=== PATIENT | female | born 1980 | race Caucasian/White ===

== ENCOUNTER → 2023-04-13 07:59 | Outpatient (CLI) | payer BC, SELFPAY ==
[2023-04-13 08:51] LABS: Influenza A - CEPHEID Flu A NEGATIVE (NEGATIVE); Influenza B - CEPHEID Flu B NEGATIVE (NEGATIVE); Respiratory Syncytial Virus Negative (Negative)
[2023-04-13 09:51] LABS: COVID-19 CEPHEID 4-PLEX PCR Negative (Negative)
== END ==
PROVIDERS: Visit Provider Student in an Organized Health Care Education/Training Program
DX: R50.9 Fever, unspecified (principal)
CPT/HCPCS: 0241U

== ENCOUNTER 2023-04-13 08:06 | Emergency (ER) | payer BC, SELFPAY ==
[2023-04-13] VITALS (8 sets, daily range): BP systolic 137–150; BP diastolic 66–76; PULSE 60–79; RESP 16; TEMP 36.5; O2SAT 95–100; BMI 23.3
--- NOTE | 2023-04-13 08:17 | ED.GENADULT ---
HPI - General Adult General Chief complaint: Nausea/Vomiting/Diarrhea Stated complaint: vomiting, abd pain Time Seen by Provider: 04/13/23 08:09 Source: patient Mode of arrival: Ambulatory Limitations: no limitations History of Present Illness HPI narrative: Patient is a 43-year-old female who was sent over from the walk-in clinic for evaluation of less than 12 hours of nausea and vomiting. No diarrhea. Multiple episodes. No belly pain. No fevers. No chest pain or shortness of breath. She states that this has happened to her in the past when she has been around family who ?change smokes?. She states that it seems to be all of the smoke that causes her to feel this way and in the past has required fluids and multiple doses of nausea medication to improve the symptoms Related Data Previous Rx's Medication Instructions Recorded metoclopramide HCl 10 mg tablet 10 mg PO Q6H PRN nausea and 04/13/23 vomiting #14 tabs Allergies Allergy/AdvReac Type Severity Reaction Status Date / Time No Known Drug Allergies Allergy Unverified 04/13/23 07:58 Review of Systems Constitutional Constitutional: Reports system reviewed and no additional complaints, except as documented Cardiovascular Cardiovascular: Reports system reviewed and no additional complaints, except as documented Gastrointestinal Gastrointestinal: Reports system reviewed and no additional complaints, except as documented Genitourinary Genitourinary: Reports system reviewed and no additional complaints, except as documented Integumentary/Breasts Skin/Breast: Reports system reviewed and no additional complaints, except as documented Hematologic/Lymphatic On Anticoagulants: No Patient History Social History Smoking Status: Never smoker Exam Initial Vital Signs Initial Vital Signs: Vital Signs Temperature 97.7 F 04/13/23 08:18 Pulse Rate 62 04/13/23 08:18 Respiratory Rate 16 04/13/23 08:18 Blood Pressure 150/71 H 04/13/23 08:18 Pulse Oximetry 97 04/13/23 08:18 Oxygen Delivery Method Room Air 04/13/23 08:18 HENMT Head: normal to inspection and normocephalic Resp Effort & Inspection: normal respiratory effort Auscultation: clear to auscultation bilaterally Cardio Rate: regular rate Rhythm: regular rhythm GI Inspection: normal to inspection and non-distended Palpation: No tender Neuro General: patient alert, patient awake and moves all extremities Extrem General: capillary refill normal Course Orders Ordered: ED Orders 04/13/23 08:23 Comprehensive Metabolic Panel Stat Lipase Stat Test Serum,Qual Stat 04/13/23 08:31 Urinalysis and Microscopic Stat 04/13/23 09:34 Complete Blood Count AUTO DIFF Stat Discontinued Medications Sodium Chloride (Normal Saline 0.9%) 1,000 mls @ 1,000 mls/hr IV BOLUS ONE Stop: 04/13/23 09:08 Last Infusion: 04/13/23 09:43 Dose: Infused Documented By: Admin: 04/13/23 08:32 Dose: 1,000 mls/hr Documented By: MARCO ANTONIO Metoclopramide HCl (Metoclopramide 10 Mg/2 Ml Inj) 10 mg IV NOW ONE Stop: 04/13/23 08:18 Last Admin: 04/13/23 08:33 Dose: 10 mg Documented By: MARCO ANTONIO Vital Signs Vital signs: Vital Signs - 8 hr 04/13/23 08:18 04/13/23 08:22 04/13/23 08:30 Temperature 97.7 F Pulse Rate 62 63 60 Respiratory Rate 16 Blood Pressure 150/71 H Pulse Oximetry 97 95 97 Oxygen Delivery Method Room Air Room Air 04/13/23 09:00 Temperature Pulse Rate 65 Respiratory Rate Blood Pressure Pulse Oximetry 98 Oxygen Delivery Method Medical Decision Making Lab Data Lab results reviewed: Yes I reviewed the patient's lab results. 04/13/23 09:34 04/13/23 08:23 Labs: Lab Results 04/13/23 04/13/23 04/13/23 Range/Units 08:23 08:31 09:34 WBC 13.1 H (4.5-11.0) X10^3/uL RBC 4.29 (4.0-5.2) X10^6/uL Hgb 11.3 L (12.0-16.0) g/dL Hct 34.0 L (36-46) % MCV 79.1 L (80-100) fL MCH 26.4 (26-34) PG MCHC 33.3 (30-36) % RDW 15.5 H (11.6-14.8) % Plt Count 265 (150-400) X10^3/uL Neut % (Auto) 94.1 H (50-75) % Lymph % (Auto) 2.5 L (25-40) % [place] % (Auto) 3.3 (3-14) % Eos % (Auto) 0.0 L (2-4) % Baso % (Auto) 0.1 (0-2) % Neut # (Auto) 43472 H (8618-2744) /uL Lymph # (Auto) 300 L (4461-3633) /uL [place] # (Auto) 400 (0-900) /uL Eos # (Auto) 0 (0-450) /uL Baso # (Auto) 0 (0-100) /uL Sodium 140 (137-145) mmol/L Potassium 4.0 (3.4-5.1) mmol/L Chloride 107 (98-107) mmol/L Carbon Dioxide 17 L (22-32) mmol/L BUN 7 (7-17) mg/dL Creatinine 0.57 (0.52-1.04) mg/dL Estimated GFR > 60 (>60) mL/min BUN/Creatinine Ratio 12.3 (6-22) Glucose 150 H (70-100) mg/dL Calcium 10.1 (8.4-10.2) mg/dL Total Bilirubin 0.8 (0.2-1.3) mg/dL AST 39 H (14-36) IU/L ALT 20 (<35) IU/L Alkaline Phosphatase 71 (38-126) U/L Total Protein 8.8 H (6.3-8.2) g/dL Albumin 5.0 (3.5-5.0) g/dL Globulin 3.8 (1.7-4.1) g/dL Albumin/Globulin Ratio 1.3 (1.0-2.8) Lipase 75 (23-300) U/L Serum , Qual Negative (Negative) Urine Color Yellow Urine Appearance Clear Urine pH 5.5 (4.5-8.0) Ur Specific [place] >=1.030 H (1.000-1.035) Urine Protein 2+ H (Negative) Urine Glucose (UA) Negative (Negative) g/dL Urine Ketones 3+ H (NEGATIVE) Urine Occult Blood 2+ H (Negative) Urine Nitrate Negative (Negative) Urine Bilirubin Negative (NEGATIVE) Urine Urobilinogen 0.2 (0.2) E.U./dL Ur Leukocyte Esterase Negative (NEGATIVE) Urine RBC 5-10/hpf H (0-5/HPF) Urine WBC 1-5/hpf (0-5/HPF) Ur Squamous Epith Cells 5-10 /hpf H (0-5/HPF) Urine Bacteria Occasional (0-1) (None) Ur Culture Indicated? Cult not indicated Urine Dip Bedside Urine Glucose Negative Bedside Urine Bilirubin - Negative Bedside Urine Ketone +++ 80 Urine Specific [place] 1.030 Bedside Urine Occult Blood ++ Bedside Urine pH 6.0 Bedside Urine Protein + 30 Bedside Urine Urobilinogen - Negative Bedside Urine Nitrite - Negative Bedside Urine Leukocytes - Negative Esterase Point of care testing: Urine Dip Bedside Urine Glucose Negative Bedside Urine Bilirubin - Negative Bedside Urine Ketone +++ 80 Urine Specific [place] 1.030 Bedside Urine Occult Blood ++ Bedside Urine pH 6.0 Bedside Urine Protein + 30 Bedside Urine Urobilinogen - Negative Bedside Urine Nitrite - Negative Bedside Urine Leukocytes - Negative Esterase MDM Narrative Medical decision making narrative: Patient is feeling better after the Reglan. She states she is taking very small sips of water. She states she is feeling well enough to go home. Will send home with a prescription for Reglan. We discussed a bland diet and drinking small amounts more frequently. She was given return precautions. She expressed understanding and agreement. Discharge Plan Departure Patient Disposition: Home Clinical Impression: Nausea and vomiting Instructions: Nausea and Vomiting-Adult Activity Restrictions/Additional Instructions: Recommend that you eat a bland diet and drink small amounts of fluid frequently. Use the nausea medication as needed. Return to the emergency department for new symptoms. Prescriptions: New metoclopramide HCl 10 mg tablet 10 mg PO Q6H PRN (Reason: nausea and vomiting) Qty: 14 0RF Referrals: Miscellaneous,[facility] [Primary Care Provider] - Stand Alone Forms: Patient Portal/API
[2023-04-13] MEDS: SODIUM CHLORIDE 0.9% 1,000 ML 1000 ML IV (08:32)
[2023-04-13] MEDS: METOCLOPRAMIDE 10 MG/2 ML INJ IV (08:33)
[2023-04-13 08:47] LABS: Alanine Aminotransferase 20 IU/L (<35); Albumin Globulin Ratio 1.3 (1.0-2.8); Alkaline Phosphatase 71 U/L (38-126); Aspartate Aminotransferase 39 IU/L (14-36); BUN Creatinine Ratio 12.3 (6-22); Bilirubin Total 0.8 mg/dL (0.2-1.3); Blood Urea Nitrogen 7 mg/dL (7-17); Calcium 10.1 mg/dL (8.4-10.2); Carbon Dioxide 17 mmol/L (22-32); Chloride 107 mmol/L (98-107); Estimated Glomerular Filt Rate > 60 mL/min (>60); Globulin 3.8 g/dL (1.7-4.1); Glucose 150 mg/dL (70-100); HEMOLYSIS 46 (0-50); Lipase 75 U/L (23-300); Sodium 140 mmol/L (137-145); Total Protein 8.8 g/dL (6.3-8.2)
[2023-04-13 08:49] LABS: Pregnancy Test Serum,Qual Negative (Negative)
--- NOTE | 2023-04-13 08:49 | PC.NURSE ---
Patient states vomiting and dry heaving since 0200 today along with diarrhea. Spouse at bedside. Pt states she cannot be as her spouse is fixed.
[2023-04-13 08:52] LABS: Appearance Urine UA CLEAR; Bilirubin Urine UA NEGATIVE (NEGATIVE); Color Urine UA YELLOW; Glucose Urine UA NEGATIVE (Negative); Ketones Urine UA 3+ (NEGATIVE); Leukocyte Esterase Urine UA NEGATIVE (NEGATIVE); Nitrite Urine UA NEGATIVE (Negative); Occult Blood Urine UA 2+ (Negative); Protein Urine UA 2+ (Negative); Specific Gravity Urine UA >=1.030 (1.000-1.035); Urobilinogen Urine UA 0.2 E.U./dL (0.2)
[2023-04-13 08:56] LABS: pH Urine UA 5.5 (4.5-8.0)
[2023-04-13 09:02] LABS: Bacteria Urine Occasional (0-1); Culture Indicated Urine Cult Not Indicated; RBC Urine 5-10/HPF (0-5/HPF); Squamous Epithelial Cell Urine 5-10 /HPF (0-5/HPF); WBC Urine 1-5/HPF (0-5/HPF)
[2023-04-13 09:50] LABS: Add Manual Diff / Slide Review NO; Basophils Absolute Auto 0 /uL (0-100); Basophils Percent Auto 0.1 % (0-2); Eosinophils Absolute Auto 0 /uL (0-450); Hemoglobin 11.3 g/dL (12.0-16.0); Lymphocytes Absolute Auto 300 /uL (1100-4500); Lymphocytes Percent Auto 2.5 % (25-40); Mean Corpuscular HGB Conc 33.3 % (30-36); Mean Corpuscular Hemoglobin 26.4 PG (26-34); Mean Corpuscular Volume 79.1 fL (80-100); Monocytes Absolute Auto 400 /uL (0-900); Monocytes Percent Auto 3.3 % (3-14); Neutrophils Absolute Auto 12300 /uL (1500-7000); Neutrophils Percent Auto 94.1 % (50-75); Platelet Count 265 X10^3/uL (150-400); Red Blood Cell Count 4.29 X10^6/uL (4.0-5.2); Red Cell Distribution Width 15.5 % (11.6-14.8); White Blood Cell Count 13.1 X10^3/uL (4.5-11.0)
[2023-04-13] MEDS: ONDANSETRON 4 MG/2 ML INJ IV (10:15)
== END 2023-04-13 10:33 | disposition home or self-care (01) ==
PROVIDERS: Emergency Provider Emergency Medicine
DX: R11.2 Nausea with vomiting, unspecified (principal); Z20.822 Contact with and (suspected) exposure to COVID-19; R50.9 Fever, unspecified
CPT/HCPCS: 0241U; 36415; 80053; 81001; 81003; 83690; 84703; 85025; 96361; 96374; 96375; 99284; J2405; J2765

== ENCOUNTER → 2023-06-14 19:32 | Outpatient (CLI) | payer OTHER, SELFPAY ==
--- NOTE | 2023-06-14 | DI.MRI.S_ITS ---
PROCEDURE: MR SHOULDER LT WO CON INDICATIONS: left shoulder pain TECHNIQUE: Noncontrast oblique coronal T2 fast spin echo with fat saturation, oblique sagittal T1 spin echo and T2 fast spin echo with fat saturation, axial T1 spin echo and T2 fast spin echo with fat saturation through the shoulder. COMPARISON: [facility], CR, XR SHOULDER 2+ VIEWS LEFT, 05/22/2023, 8:41. FINDINGS: Image quality: Excellent. Rotator cuff: Mild supraspinatus tendinosis and low-grade bursal surface fraying without significant tearing. Infraspinatus and teres minor tendons are intact. There is mild subscapularis tendinosis and low-grade partial intrasubstance tearing at the superior insertion. Rotator cuff musculature is normal in bulk. Bones and bursae: No acute trabecular bone injury or fracture. No focal glenohumeral cartilage defect is seen. Mild degenerative changes are seen at the acromioclavicular joint. There is trace fluid in the subacromial/subdeltoid bursa. No significant glenohumeral effusion is seen. Capsule and soft tissues: No displaced labral tear is seen. The proximal biceps long head tendon is intact. There is effacement of the normal fat signal in the rotator interval. The anterior band of the inferior glenohumeral ligament appears thickened and edematous. IMPRESSION: 1. Mild supraspinatus tendinosis with low-grade bursal surface fraying. 2. Low-grade partial intrasubstance tearing of the subscapularis tendon at the superior insertion superimposed on mild tendinosis. 3. No acute trabecular bone injury. No displaced labral tear is seen. Biceps long head tendon is intact. 4. Mild acromioclavicular joint osteoarthrosis. 5. Effacement of the rotator interval fat and thickening and edema within the inferior glenohumeral ligament are nonspecific, but can be seen in the setting of the clinical syndrome of adhesive capsulitis. Approved by: Yared Sam M.D. on 06/15/2023 at 20:41
== END ==
LOC: MRI 19:34
PROVIDERS: Referring Provider Physician Assistant; Visit Provider Physician Assistant
DX: M19.012 Primary osteoarthritis, left shoulder (principal); M75.112 Incomplete rotator cuff tear or rupture of left shoulder, not specified as traumatic; M75.22 Bicipital tendinitis, left shoulder; M25.512 Pain in left shoulder
CPT/HCPCS: 73221